=== PATIENT | female | born 1970 | race Two or more races ===

== ENCOUNTER 2022-05-14 11:43 | Emergency (ER) | payer SELFPAY ==
[~2022-05-14] VITALS: Ht 167.6 cm; Wt 78.0 kg
[2022-05-14] MEDS ORDERED: HYDROCODONE/ACETAMINOPHEN 5/325MG TABLET PO STA (12:06)
[2022-05-14] MEDS ORDERED: KETOROLAC 60MG/2ML VIAL IM STA (12:06)
[2022-05-14 12:17] VITALS: BP 114/80
[2022-05-14] MEDS ORDERED: NAPR-681 PO (14:24)
[2022-05-14] MEDS ORDERED: T3 PO (14:24)
== END 2022-05-14 14:51 | disposition home or self-care (01) ==
LOC: ER 11:43
DX: S39.012A Strain of muscle, fascia and tendon of lower back, initial encounter (principal); X58.XXXA Exposure to other specified factors, initial encounter; Y93.89 Activity, other specified; Y92.89 Other specified places as the place of occurrence of the external cause; Y99.8 Other external cause status
CPT/HCPCS: 72100; 96372; 99283; J1885